=== PATIENT | male | born 1950 | race African-American/Black ===

== ENCOUNTER 2019-05-18 13:06 | Emergency (ER) | payer MEDICARE, MEDICAID ==
[~2019-05-18] VITALS: Ht 190.5 cm; Wt 100.0 kg
[2019-05-18 13:07] VITALS: Ht 190.5 cm; Wt 100.0 kg
[2019-05-18] MEDS ORDERED: GLUCOPHAGE500 MG PO (13:09)
[2019-05-18] MEDS ORDERED: PEPCID AC20 MG PO (13:10)
[2019-05-18] MEDS ORDERED: HYDROCHLOROTHIA25 MG PO (13:11)
[2019-05-18] MEDS ORDERED: MECLIZINE HCL25 MG PO (13:11)
[2019-05-18] MEDS ORDERED: LISINOPRIL5 MG PO (13:11)
[2019-05-18] MEDS ORDERED: BAYER CHEWABLE81 MG PO (13:12)
[2019-05-18] MEDS ORDERED: ZOCOR40 MG PO (13:12)
[2019-05-18 15:06] LABS: BASOPHILS 0.1 % (0-2); EOSINOPHILS 0.1 % (0-7); HEMATOCRIT 45.2 % (42.0-54.0); HEMOGLOBIN 15.7 g/dL (13.5-17.5); IMMATURE GRANULOCYTES 0.3 % (0-5); LYMPHOCYTES 42.1 % (15-50); MCH 30.3 pg (26.0-34.0); MCHC 34.7 g/dL (31.0-37.0); MCV 87.1 fL (80.0-100.0); MONOCYTES 4.7 % (2-11); NEUTROPHILS 52.7 % (40-80); RBC 5.19 10x6/uL (4.20-6.10); RDW 15.6 % (11.5-14.5); WBC 7.9 10x3/uL (4.8-10.8)
[2019-05-18 15:08] LABS: PLATELET COUNT 275 10x3/uL (130-400)
[2019-05-18 15:27] LABS: ALBUMIN 3.7 g/dL (3.4-5.0); ALKALINE PHOSPHATASE 113 U/L (46-116); ALT (SGPT) 33 U/L (10-68); BILIRUBIN - TOTAL 0.86 mg/dL (0.2-1.3); CALC OSMOLALITY 282 mosm/kg (275-300); CALCIUM 9.2 mg/dL (8.5-10.1); CARBON DIOXIDE 25.9 mmol/L (21.0-32.0); CHLORIDE - SERUM 105 mmol/L (98-107); CREATININE - SERUM 1.2 mg/dL (0.6-1.3); GLUCOSE 115 mg/dL (74-106); POTASSIUM - SERUM 3.7 mmol/L (3.5-5.1); PROTEIN - SERUM 7.6 g/dL (6.4-8.2); SODIUM 141 mmol/L (136-145); UREA NITROGEN 15 mg/dL (7-18); eGFR NON AFRICAN AMERICAN 63 mL/min (90-120)
[2019-05-18 15:38] LABS: AMYLASE - SERUM 64 U/L (25-115); CKMB 0.7 U/L (0.0-3.6); CREATINE KINASE 146 UL (21-232); LIPASE 163 U/L (73-393); MAGNESIUM - SERUM 1.9 mg/dL (1.8-2.4); PRO BNP 74 pg/mL (0-125)
[2019-05-18 15:42] LABS: TROPONIN-I < 0.017 ng/mL (0.000-0.060)
[2019-05-18 17:31] LABS: APPEARANCE CLEAR (CLEAR); BILIRUBIN NEGATIVE (NEGATIVE); COLOR DK YELLOW (YELLOW); GLUCOSE NEGATIVE (NEGATIVE); KETONE NEGATIVE (NEGATIVE); NITRITE NEGATIVE (NEGATIVE); PROTEIN NEGATIVE (NEGATIVE); SPECIFIC GRAVITY 1.025 (1.005-1.020); UROBILINOGEN NORMAL (NORMAL)
[2019-05-18 17:35] LABS: BACTERIA FEW /hpf (NONE SEEN); EPITHELIAL CELLS 0-5 /hpf (0-5); MUCUS >1+ /lpf (NONE SEEN); RED CELLS - URINE OCC /hpf (0-5); WHITE CELLS - URINE OCC /hpf (0-5)
[2019-05-18] MEDS ORDERED: ZOFRAN4 MG PO (18:02)
[2019-05-18 19:39] VITALS: BP 149/99
== END 2019-05-18 19:39 | disposition home or self-care (01) ==
LOC: D.ER 13:06
PROVIDERS: Emergency Medicine
DX: K52.9 Noninfective gastroenteritis and colitis, unspecified (principal); E11.9 Type 2 diabetes mellitus without complications; I10 Essential (primary) hypertension; K21.9 Gastro-esophageal reflux disease without esophagitis

== ENCOUNTER 2021-05-18 16:46 | Emergency (ER) | payer MEDICARE, MEDICAID ==
[~2021-05-18] VITALS: Ht 190.5 cm; Wt 105.0 kg
[~2021-05-18 16:46] MED LIST: BAYER CHEWABLE81 MG PO; GLUCOPHAGE500 MG PO; HYDROCHLOROTHIA25 MG PO; LISINOPRIL5 MG PO; MECLIZINE HCL25 MG PO; PEPCID AC20 MG PO; ZOCOR40 MG PO; ZOFRAN4 MG PO
[2021-05-18 16:55] VITALS: Ht 190.5 cm; Wt 105.0 kg
[2021-05-18 17:23] LABS: BASOPHILS 1.3 % (0-2); EOSINOPHILS 0.5 % (0-7); HEMATOCRIT 42.6 % (42.0-54.0); HEMOGLOBIN 14.4 g/dL (13.5-17.5); LYMPHOCYTES 38.8 % (15-50); MCH 29.4 pg (26.0-34.0); MCHC 33.8 g/dL (31.0-37.0); MCV 86.9 fL (80.0-100.0); MEAN PLATELET VOLUME 8.3 fL (7.4-10.4); MONOCYTES 7.8 % (2-11); NEUTROPHILS 51.6 % (40-80); PLATELET COUNT 272 10x3/uL (130-400); RDW 15.8 % (11.5-14.5); WBC 10.1 10x3/uL (4.8-10.8)
[2021-05-18 17:28] LABS: CALC OSMOLALITY 278 mosm/kg (275-300); CALCIUM 8.3 mg/dL (8.5-10.1); CARBON DIOXIDE 24.6 mmol/L (21.0-32.0); CHLORIDE - SERUM 104 mmol/L (98-107); CREATININE - SERUM 1.4 mg/dL (0.6-1.3); GLUCOSE 77 mg/dL (74-106); POTASSIUM - SERUM 3.3 mmol/L (3.5-5.1); SODIUM 140 mmol/L (136-145); UREA NITROGEN 15 mg/dL (7-18); eGFR NON AFRICAN AMERICAN 53 mL/min (90-120)
[2021-05-18 17:41] LABS: APTT 25.9 SECONDS (22.8-39.4); INR 1.09 (0.85-1.17); PROTIME 13.1 SECONDS (11.6-15.0)
[2021-05-18 17:45] LABS: ALBUMIN 3.7 g/dL (3.4-5.0); ALKALINE PHOSPHATASE 104 U/L (30-120); ALT (SGPT) 31 U/L (10-68); BILIRUBIN - TOTAL 0.69 mg/dL (0.2-1.3); CKMB 1.7 U/L (0.0-3.6); CREATINE KINASE 196 UL (21-232); MAGNESIUM - SERUM 1.8 mg/dL (1.8-2.4); PROTEIN - SERUM 7.4 g/dL (6.4-8.2); THYROID STIMULATING HORMONE 3.21 uIU/mL (0.36-3.74)
[2021-05-18 17:47] LABS: TROPONIN-I < 0.017 ng/mL (0.000-0.060)
[2021-05-18 23:03] VITALS: BP 137/80
== END 2021-05-18 23:03 | disposition home or self-care (01) ==
LOC: D.ER 16:46
PROVIDERS: Family Medicine
DX: Z00.00 Encounter for general adult medical examination without abnormal findings (principal); E11.9 Type 2 diabetes mellitus without complications; I10 Essential (primary) hypertension; K21.9 Gastro-esophageal reflux disease without esophagitis